=== PATIENT | female | born 1935 | race Caucasian/White ===

== ENCOUNTER → 2016-12-17 | Outpatient (CLI) | payer MEDICARE, BC ==
[2015-08-11 01:33] VITALS: BP 142/80
[~2016-12-17] MED LIST: ACET500T68 PO; ASPI81TA2 PO; CALC-507 PO; FERR-26 PO; GABA-586 PO; LEVO88TA4 PO; LISI-334 PO; MULT-208 PO; VITA1TAB49 PO
--- NOTE | 2016-12-17 14:56 | RAD ---
Left lower extremity venous Doppler ultrasound History: Left lower extremity pain. Comparison: None. Procedure: Color Doppler, spectral Doppler, and grayscale images are obtained with and without compression in the area of the common femoral vein, superficial femoral vein - femoral vein junction, main femoral vein (superficial femoral vein) and popliteal vein. Veins of the proximal calf are also imaged. Findings: There is normal duplex flow, color flow and compressibility of all visualized vein segments. No evidence of deep venous thrombosis is present. Impression: No evidence of left lower extremity deep venous thrombosis.
== END | disposition home or self-care (01) ==
LOC: US 13:21
PROVIDERS: ATTEND Family Medicine
DX: M79.605 Pain in left leg (principal)
CPT/HCPCS: 93971

== ENCOUNTER → 2017-05-27 | Outpatient (CLI) | payer MEDICARE, BC ==
[2015-08-11 01:33] VITALS: BP 142/80
[~2017-05-27] MED LIST changes: +ASPI-630 PO; -ASPI81TA2 PO
--- NOTE | 2017-05-28 10:15 | RAD ---
DATE: 05/27/2017 EXAM: MAMMO MYCHAL SCREEN RT HISTORY: Screening. The history of left breast malignancy with subsequent mastectomy is noted COMPARISON: One year earlier This study was interpreted with the benefit of Computerized Aided Detection (CAD). FINDINGS: Breast Density: FATTY The Breast Parenchyma is primarily fatty replaced. Breast parenchyma level density A.. Some vascular calcification is seen in the breasts. There is no dominant mass or suspect group of calcifications. There has not been a significant change in the appearance of the right breast relative to the previous exam IMPRESSION: Benign findings] right breast BI-RADS CATEGORY: 2 BENIGN FINDING(S) RECOMMENDED FOLLOW-UP: 12M 12 MONTH FOLLOW-UP PQRS compliance statement: Patient information was entered into a reminder system with a target due date 05/27/2018 for the next mammogram. Mammography is a sensitive method for finding small breast cancers, but it does not detect them all and is not a substitute for careful clinical examination. A negative mammogram does not negate a clinically suspicious finding and should not result in delay in biopsying a clinically suspicious abnormality. "Our facility is accredited by the [employer] Mammography Program."
== END | disposition home or self-care (01) ==
LOC: MAMMO 12:47
PROVIDERS: ATTEND Internal Medicine Hematology & Oncology
DX: Z12.31 Encounter for screening mammogram for malignant neoplasm of breast (principal)
CPT/HCPCS: 77063; G0202; 77067

== ENCOUNTER → 2018-06-03 | Outpatient (CLI) | payer MEDICARE, BC ==
[2015-08-11 01:33] VITALS: BP 142/80
[~2018-06-03] MED LIST changes: -FERR-26 PO; +FERR325T14 PO
--- NOTE | 2018-06-03 15:32 | RAD ---
DATE: June 03, 2018 EXAM: MAMMO MYCHAL SCREEN RT HISTORY: History of left breast cancer treated with mastectomy in 2008. COMPARISON: 2015 and 2016 This study was interpreted with the benefit of Computerized Aided Detection (CAD). 2-D digital mammographic views of the right breast were performed in the CC and MLO projections. 3-D digital tomosynthesis images of the right breast were performed in the CC and MLO projections and reviewed on a computer workstation. FINDINGS: Breast Density: FATTY The breast parenchyma is primarily fatty replaced. Breast parenchyma level density A.. There are no dominant suspicious masses, suspicious microcalcifications or evidence of architectural distortion. IMPRESSION: No mammographic indicators for malignancy. BI-RADS CATEGORY: 1 NEGATIVE RECOMMENDED FOLLOW-UP: 12M 12 MONTH FOLLOW-UP PQRS compliance statement: Patient information was entered into a reminder system with a target due date June 04, 2019 for the next mammogram. Mammography is a sensitive method for finding small breast cancers, but it does not detect them all and is not a substitute for careful clinical examination. A negative mammogram does not negate a clinically suspicious finding and should not result in delay in biopsying a clinically suspicious abnormality. "Our facility is accredited by the [employer] Mammography Program." The patient's breast density may affect the ability of mammography to detect breast cancer. There are 4 categories of breast density, A, B, C and D. Breast density A means that most of the breast tissue is replaced with adipose tissue and therefore is not dense. Breast density B means that the breast tissue is mildly dense and scattered. Breast density C means that the breast tissue is heterogeneously dense. Breast density D means that the breast tissue is very dense. Breast densities especially C and D may decrease the sensitivity of mammography to detect breast cancer. Therefore, the patient may benefit from 3-D breast mammography (3D breast tomography) as a part of their screening mammogram. Insurance may or may not pay for this additional imaging. The patient's breast density based on today's mammogram is category A.
== END | disposition home or self-care (01) ==
LOC: MAMMO 11:15
PROVIDERS: ATTEND Family Medicine
DX: Z12.31 Encounter for screening mammogram for malignant neoplasm of breast (principal); I10 Essential (primary) hypertension; Z85.038 Personal history of other malignant neoplasm of large intestine; Z85.3 Personal history of malignant neoplasm of breast; Z90.49 Acquired absence of other specified parts of digestive tract; Z88.0 Allergy status to penicillin; Z88.1 Allergy status to other antibiotic agents
CPT/HCPCS: 77063; 77067

== ENCOUNTER → 2019-06-04 | Outpatient (CLI) | payer MEDICARE, BC ==
[2015-08-11 01:33] VITALS: BP 142/80
--- NOTE | 2019-06-05 13:27 | RAD ---
DATE: 06/04/2019 1:05 PM EXAM: MAMMO MYCHAL SCREEN RT HISTORY: Routine screening evaluation. History of left mastectomy COMPARISON: 05/27/2017, 06/03/2018, 05/24/2016 Bilateral CC and MLO views of the breasts were performed. Bilateral breast tomosynthesis was performed in CC and MLO projections. This study was interpreted with the benefit of Computerized Aided Detection (CAD). FINDINGS: Breast Density: SCATTERED The breast parenchyma shows scattered fibroglandular densities. Breast parenchyma level B Benign calcifications are present. No suspicious masses, microcalcifications or architectural distortion is present to suggest malignancy in either breast. The visualized axillae are unremarkable. IMPRESSION: No mammographic evidence of malignancy. BI-RADS CATEGORY: 2 BENIGN FINDING(S) RECOMMENDED FOLLOW-UP: 12M 12 MONTH FOLLOW-UP Annual screening mammography is recommended, unless clinically indicated sooner based on symptoms or change in physical exam. PQRS compliance statement: Patient information was entered into a reminder system with a target due date for the next mammogram. Mammography is a sensitive method for finding small breast cancers, but it does not detect them all and is not a substitute for careful clinical examination. A negative mammogram does not negate a clinically suspicious finding and should not result in delay in biopsying a clinically suspicious abnormality. "Our facility is accredited by the [employer] Mammography Program."
== END | disposition home or self-care (01) ==
LOC: MAMMO 12:55
PROVIDERS: ATTEND Family Medicine
DX: Z12.31 Encounter for screening mammogram for malignant neoplasm of breast (principal); N64.89 Other specified disorders of breast; Z90.12 Acquired absence of left breast and nipple
CPT/HCPCS: 77063; 77067

== ENCOUNTER → 2020-01-29 | Day surgery (SDC) | payer MEDICARE, BC ==
[~2020-01-29] MED LIST changes: +CALC-178 PO; +IPRATRPIUM/ALBUTEROL 0.5/2.5MG 3 ML NEBU. NEB PRN; +IV RINGERS SOLUTION,LACTATED 1,000 ML IV SCH; +LEVO75TA5 PO; +ONDANSETRON PF 4 MG/2 ML VIAL. IV PRN; +PROPOFOL 10,000 MCG/ML (20ML) VIAL IV ONE; +SERT25TA PO; +VIT1TABL32 PO
[2020-01-29 13:38] VITALS: BP 129/57
--- NOTE | 2020-02-02 15:07 | PATHOLOGY ---
[facility] Accession Number: [id number] . 01 Material submitted: . stomach - ANTRUM-GASTRITIS . 01 Clinical history: . None provided . 02 Diagnosis: Gastric biopsies, antrum: - Chronic gastritis, mild. ([facility] 02/02/2020) [facility] 02/02/2020 0919 Local . 02 Comment: Sections of the gastric biopsy reveal segments of gastric body and antral/body transition mucosa showing congestion and mild chronic inflammation. A properly controlled immunoperoxidase stain for Helicobacter is negative for Helicobacter organisms. ([facility] 02/02/2020) . Special stain performed: Immunoperoxidase for Helicobacter on A1. . 02 Electronically signed: . Ambrosio Collins MD, Pathologist NPI- [id number] . 01 Gross description: . The specimen is received in formalin, labeled "Shelby Friend, antrum gastritis". Received are two segments of pale corrales soft tissue ranging in size from 0.2 to 0.6 cm in maximum dimensions. The specimen is submitted entirely in cassette A1. ([facility]; 02/01/2020) [facility] 02/01/2020 1533 Local . 02 Pathologist provided ICD-10: K29.50 . 02 CPT . 046663, [id number] Specimen Comment: A courtesy copy of this report has been sent to [phone], [phone] Specimen Comment: [id number] Specimen Comment: Report sent to / DR KOENIG Performed at: 01 [facility] [address], [place] [id number] MD Joe Rios MD Phone: [phone] Performed at: 02 [facility] [address] [place], [place] [id number] MD Ambrosio Collins MD Phone: [phone]
== END | disposition home or self-care (01) ==
LOC: SURG 11:01
PROVIDERS: ATTEND Internal Medicine Gastroenterology
DX: R12 Heartburn (principal); Z11.59 Encounter for screening for other viral diseases; K29.50 Unspecified chronic gastritis without bleeding; K44.9 Diaphragmatic hernia without obstruction or gangrene; K22.2 Esophageal obstruction; K21.0 Gastro-esophageal reflux disease with esophagitis; Z88.0 Allergy status to penicillin; Z88.1 Allergy status to other antibiotic agents; Z87.11 Personal history of peptic ulcer disease; Z79.899 Other long term (current) drug therapy
CPT/HCPCS: 43239; 87635; 88305; 88342; J2704

== ENCOUNTER 2020-03-01 20:38 | Emergency (ER) | payer MEDICARE, BC ==
[~2020-03-01] VITALS: Ht 152.4 cm; Wt 59.0 kg
[~2020-03-01 20:38] MED LIST changes: -IPRATRPIUM/ALBUTEROL 0.5/2.5MG 3 ML NEBU. NEB PRN; -IV RINGERS SOLUTION,LACTATED 1,000 ML IV SCH; -ONDANSETRON PF 4 MG/2 ML VIAL. IV PRN; -PROPOFOL 10,000 MCG/ML (20ML) VIAL IV ONE
[2020-03-01] MEDS ORDERED: IV NORMAL SALINE 1,000ML 1,000 ML IV ONE (21:00)
[2020-03-01] MEDS ORDERED: ONDANSETRON PF 4 MG/2 ML VIAL. IVP ONE (21:00)
--- NOTE | 2020-03-01 21:11 | PHYS DOC ---
Past History Past Medical History: Cancer, Hypertension Past Surgical History: Cholecystectomy, Other Past Surgical History sigmoidoscopy, mastectomy, Smoking: Non-smoker Alcohol Use: None Drug Use: None General Adult EDM: Chief Complaint: ABDOMINAL PAIN HPI: HPI: Patient is a 84 year old female who presents with sudden onset right-sided abdominal pain about 5 PM today. She has had nausea but no vomiting. Patient is a complex medical history including colorectal cancer in 2001 and she is status post sigmoid ostomy. Patient had a perforated small bowel in 2014. Patient complains of chronic dark stools because she is on iron. There is no obvious rectal bleeding bright red stools etc. patient was in mild to moderate distress on arrival. Patient is in moderate distress on arrival. Patient is established with Dr. Cintron's group for general surgery at [facility] Review of Systems: Review of Systems: Constitutional: Denies fever or chills Eyes: Denies change in visual acuity HENT: Denies nasal congestion or sore throat Respiratory: Denies cough or shortness of breath Cardiovascular: Denies chest pain or edema GI: has abdominal pain with nausea, no vomiting, bloody stools or diarrhea : Denies dysuria Musculoskeletal: Denies back pain or joint pain Integument: Denies rash Neurologic: Denies headache, focal weakness or sensory changes Endocrine: Denies polyuria or polydipsia Lymphatic: Denies swollen glands Psychiatric: Denies depression or anxiety Heart Score: Risk Factors: Risk Factors: DM, Current or recent (<one month) smoker, HTN, HLP, family history of CAD, obesity. Risk Scores: Score 0 - 3: 2.5% MACE over next 6 weeks - Discharge Home Score 4 - 6: 20.3% MACE over next 6 weeks - Admit for Clinical Observation Score 7 - 10: 72.7% MACE over next 6 weeks - Early Invasive Strategies Current Medications: Current Meds: Current Medications Medications (Trade) Dose Ordered Sig/Sandro Start Time Stop Time Status Last Admin Dose Admin Ondansetron HCl (Zofran) 4 mg 1X ONCE 03/01/20 21:00 03/01/20 21:01 UNV Sodium Chloride 1,000 ml @ 150 mls/hr 1X ONCE 03/01/20 21:00 03/02/20 03:39 UNV Allergies: Allergies: Allergies Coded Allergies Type Severity Reaction Last Updated Verified Penicillins Allergy Intermediate rash, swelling lips 01/29/20 Yes cephalexin Allergy Intermediate rash and swelling lips 01/29/20 Yes Physical Exam: PE: Constitutional: Well developed, well nourished, moderate distress. [] HENT: Normocephalic, atraumatic, bilateral external ears normal, oropharynx moist, no oral exudates, nose normal. [] Eyes: PERRL, EOMI, conjunctiva normal, no discharge. [] Neck: Normal range of motion, no tenderness, supple, no stridor. [] Cardiovascular:Heart rate regular rhythm, no murmur [] Lungs & Thorax: Bilateral breath sounds clear to auscultation [] Abdomen: Bowel sounds diminished, mild distended, no masses, no pulsatile masses. Tender right side abdomen to palpation [] Skin: Warm, dry, no erythema, no rash. [] Back: No tenderness, no CVA tenderness. [] Extremities: No tenderness, no cyanosis, ROM intact, no edema. [] Neurologic: Alert and oriented X 3, normal motor function, normal sensory function, no focal deficits noted. [] Psychologic: Affect normal, judgement normal, mood normal. [] Current Patient Data: Labs: Laboratory Tests Test 03/01/20 20:45 03/01/20 20:55 Urine Collection Type Unknown Urine Color Yellow Urine Clarity Clear Urine pH 5.0 Urine Specific Ada 1.020 Urine Protein Trace Urine Glucose (UA) Neg mg/dL Urine Ketones (Stick) Neg mg/dL Urine Blood Neg Urine Nitrite Neg Urine Bilirubin Neg Urine Urobilinogen Dipstick 0.2 mg/dL Urine Leukocyte Esterase Neg Urine RBC 0 /HPF Urine WBC 1-4 /HPF Urine Squamous Epithelial Cells Few /LPF Urine Bacteria 0 /HPF Urine Hyaline Casts Occ /HPF Urine Mucus Slight /LPF White Blood Count 8.5 x10^3/uL Red Blood Count 4.44 x10^6/uL Hemoglobin 12.1 g/dL Hematocrit 38.0 % Mean Corpuscular Volume 86 fL Mean Corpuscular Hemoglobin 27 pg Mean Corpuscular Hemoglobin Concent 32 g/dL Red Cell Distribution Width 14.9 % Platelet Count 377 x10^3/uL Neutrophils (%) (Auto) 82 % Lymphocytes (%) (Auto) 10 % Monocytes (%) (Auto) 8 % Eosinophils (%) (Auto) 0 % Basophils (%) (Auto) 0 % Neutrophils # (Auto) 7.0 x10^3uL Lymphocytes # (Auto) 0.8 x10^3/uL Monocytes # (Auto) 0.7 x10^3/uL Eosinophils # (Auto) 0.0 x10^3/uL Basophils # (Auto) 0.0 x10^3/uL Sodium Level 139 mmol/L Potassium Level 3.6 mmol/L Chloride Level 100 mmol/L Carbon Dioxide Level 30 mmol/L Anion Gap 9 Blood Urea Nitrogen 38 mg/dL Creatinine 0.9 mg/dL Estimated GFR (Cockcroft-Gault) 59.9 BUN/Creatinine Ratio 42 Glucose Level 146 mg/dL Calcium Level 10.1 mg/dL Total Bilirubin 0.3 mg/dL Aspartate Amino Transf (AST/SGOT) 18 U/L Alanine Aminotransferase (ALT/SGPT) 28 U/L Alkaline Phosphatase 111 U/L Troponin I Quantitative < 0.017 ng/mL Total Protein 8.3 g/dL Albumin 3.6 g/dL Albumin/Globulin Ratio 0.8 Lipase 696 U/L Current Medications Medications (Trade) Dose Ordered Sig/Sandro Route PRN Reason Start Time Stop Time Status Last Admin Dose Admin Sodium Chloride 1,000 ml @ 150 mls/hr 1X ONCE IV 03/01/20 21:00 03/02/20 03:39 03/01/20 21:38 Ondansetron HCl (Zofran) 4 mg 1X ONCE IVP 03/01/20 21:00 03/01/20 21:07 DC 03/01/20 21:38 Iohexol (Omnipaque 300 Mg/ml) 75 ml 1X ONCE IV 03/01/20 22:00 03/01/20 22:02 DC 03/01/20 22:10 EKG: EKG: Normal sinus rhythm, rate 87, unremarkable EKG, not STEMI read at 8:10 PM [] Radiology/Procedures: Radiology/Procedures: [[address] [address] IMAGING REPORT Signed PATIENT: RADHA JESSICA ACCOUNT: [id number] : 1935 LOCATION: ER AGE: 84 SEX: F EXAM STATUS: REG ER ORD. PHYSICIAN: ASHWINI PLUNKETT DO REASON: right side abd pain, history of cancer and prior bowel perforatio PROCEDURE: CT ABD PELV W/ IV CONTRST ONLY CT scan abdomen and pelvis with contrast 03/01/2020 HISTORY: Right-sided abdominal pain. TECHNIQUE: After the intravenous administration of 100 cc of Omnipaque 350, contiguous, 5 mm axial sections were obtained through the abdomen and pelvis. One or more of the following individualized dose reduction techniques were utilized for this study: 1. Automated exposure control. 2. Adjustment of the mA and/or kV according to patient size. 3. Use of iterative reconstruction technique. FINDINGS: Comparison study is dated 08/11/2015. Images through the lung bases demonstrate mild cardiomegaly. Minimal dependent subsegmental atelectasis is seen bilaterally. The liver, spleen, pancreas, right adrenal gland and right kidney are within normal limits. A 5 mm rounded low-attenuation lesion is seen involving the midpole the left kidney which likely represents a cyst. No further imaging workup is recommended. A 1.7 cm low-attenuation lesion is seen involving the left adrenal gland consistent with an adrenal adenoma. Atherosclerotic calcification of the abdominal aorta is seen. The abdominal aorta tapers normally. Surgical clips are seen within the gallbladder fossa consistent with cholecystectomy. No free fluid or free air is seen within the abdomen. A colostomy is seen within the left lower quadrant of the abdomen. A parastomal hernia is seen which measures 8.4 cm in size. This contains fat and nondilated colon. Dilated air and fluid-filled jejunal and ileal loops are seen throughout the abdomen. A transition point is seen within the pelvis the region of the distal ileum. These findings are consistent with a small bowel obstruction. Images through the pelvis demonstrate the urinary bladder distended with urine. Calcifications are seen within the pelvis consistent with phleboliths. A small amount of free fluid is seen. Mild S-shaped curvature of the thoracolumbar spine is seen. Degenerative changes are seen involving the lower thoracic and throughout the lumbar spine along with both hips. IMPRESSION: Findings are seen consistent with a small bowel obstruction obstruction as discussed above. Electronically signed by: Yvon Nair MD (03/01/2020 10:51 PM) [id number] DICTATED AND SIGNED BY: YVON NAIR MD DATE: 03/01/20 2255 CC: DAVID KOENIG MD; ASHWINI PLUNKETT DO ~ ] Course & Med Decision Making: Course & Med Decision Making Pertinent Labs and Imaging studies reviewed. (See chart for details) [] Dragon Disclaimer: Dragon Disclaimer: This electronic medical record was generated, in whole or in part, using a voice recognition dictation system. 2308: CT scan abdomen pelvis results known and patient has a small bowel suction. Will place a nasogastric tube. Dr. Cintron is patient's general surgeon at [facility]. Call placed now to discuss case and possible transfer to that facility. Patient's pain is under control at this time. Dr. Thakur called right back and accepted patient. He requested I call the facility and the patient be admitted to the hospital service 2323 Dr. Caal is the accepting hospitalist to [facility]. They will get a general surgical consult with Dr. Thakur Departure Departure: Impression: Primary Impression: Small bowel obstruction Additional Impression: Pancreatitis, acute Qualified Codes: K85.90 - Acute pancreatitis without necrosis or infection, unspecified Disposition: 05 TRANSFER OTHER Condition: STABLE Referrals: DAVID KOENIG MD (PCP) Justification of Admission: Justification of Admission: Justification of Admission Dx: Yes ASHWINI PLUNKETT DO Mar 01, 2020 21:11
[2020-03-01 21:18] LABS: BASO % 0 % (0-3); EOS % 0 % (0-3); HEMOGLOBIN 12.1 g/dL (12.0-15.5); LYMPH # 0.8 x10^3/uL (1.0-4.8); LYMPH % 10 % (24-48); MEAN CORPUSCULAR HEMOGLOBIN 27 pg (25-35); MEAN CORPUSCULAR HGB CONC 32 g/dL (31-37); MEAN CORPUSCULAR VOLUME 86 fL (79-100); MONO # 0.7 x10^3/uL (0.0-1.1); MONO % 8 % (0-9); NEUT % 82 % (31-73); PLATELET COUNT 377 x10^3/uL (140-400); RED BLOOD COUNT 4.44 x10^6/uL (3.50-5.40); RED CELL DISTRIBUTION WIDTH 14.9 % (11.5-14.5); WHITE BLOOD COUNT 8.5 x10^3/uL (4.0-11.0)
[2020-03-01 21:34] LABS: CALCIUM 10.1 mg/dL (8.5-10.1); CREATININE 0.9 mg/dL (0.6-1.0); GFR 59.9; POTASSIUM 3.6 mmol/L (3.5-5.1)
[2020-03-01 21:36] LABS: BACTERIA,URINE 0 /HPF (0-FEW); BILIRUBIN,URINE NEG (NEG); CLARITY,URINE CLEAR; COLOR,URINE YELLOW; GLUCOSE,URINE NEG (NEG); NITRITE,URINE NEG (NEG); RBC,URINE 0 /HPF (0-2); SQUAMOUS EPITHELIAL CELL,UR FEW /LPF; UROBILINOGEN,URINE 0.2 mg/dL (0.2 mg/dL)
[2020-03-01 21:37] LABS: HYALINE CASTS, URINE OCC /HPF
[2020-03-01 21:40] LABS: ALBUMIN 3.6 g/dL (3.4-5.0); ALBUMIN/GLOBULIN RATIO 0.8 (1.0-1.7); TOTAL BILIRUBIN 0.3 mg/dL (0.2-1.0); TOTAL PROTEIN 8.3 g/dL (6.4-8.2)
[2020-03-01] MEDS ORDERED: IOHEXOL 300 MG/ML 75 ML VIAL. IV ONE (22:00)
--- NOTE | 2020-03-01 22:53 | RAD ---
CT scan abdomen and pelvis with contrast 03/01/2020 HISTORY: Right-sided abdominal pain. TECHNIQUE: After the intravenous administration of 100 cc of Omnipaque 350, contiguous, 5 mm axial sections were obtained through the abdomen and pelvis. One or more of the following individualized dose reduction techniques were utilized for this study: 1. Automated exposure control. 2. Adjustment of the mA and/or kV according to patient size. 3. Use of iterative reconstruction technique. FINDINGS: Comparison study is dated 08/11/2015. Images through the lung bases demonstrate mild cardiomegaly. Minimal dependent subsegmental atelectasis is seen bilaterally. The liver, spleen, pancreas, right adrenal gland and right kidney are within normal limits. A 5 mm rounded low-attenuation lesion is seen involving the midpole the left kidney which likely represents a cyst. No further imaging workup is recommended. A 1.7 cm low-attenuation lesion is seen involving the left adrenal gland consistent with an adrenal adenoma. Atherosclerotic calcification of the abdominal aorta is seen. The abdominal aorta tapers normally. Surgical clips are seen within the gallbladder fossa consistent with cholecystectomy. No free fluid or free air is seen within the abdomen. A colostomy is seen within the left lower quadrant of the abdomen. A parastomal hernia is seen which measures 8.4 cm in size. This contains fat and nondilated colon. Dilated air and fluid-filled jejunal and ileal loops are seen throughout the abdomen. A transition point is seen within the pelvis the region of the distal ileum. These findings are consistent with a small bowel obstruction. Images through the pelvis demonstrate the urinary bladder distended with urine. Calcifications are seen within the pelvis consistent with phleboliths. A small amount of free fluid is seen. Mild S-shaped curvature of the thoracolumbar spine is seen. Degenerative changes are seen involving the lower thoracic and throughout the lumbar spine along with both hips. IMPRESSION: Findings are seen consistent with a small bowel obstruction obstruction as discussed above. Electronically signed by: Yvon Nair MD (03/01/2020 10:51 PM) [id number]
--- NOTE | 2020-03-01 23:06 | EKG ---
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
[2020-03-02 01:15] VITALS: BP 158/73
--- NOTE | 2020-03-02 02:42 | RAD ---
EXAM: CHEST ONE VIEW. HISTORY: Line placement. COMPARISON: 08/11/2015. FINDINGS: A frontal view of the chest is obtained. A nasogastric tube is looped within the distal stomach and has its tip in the gastric body. Cholecystectomy clips are noted. There is mild basilar atelectasis. There are no confluent infiltrates. There is no pneumothorax or pleural effusion. The heart is not enlarged. There are atherosclerotic calcifications of the aorta. IMPRESSION: 1. No confluent infiltrates. Electronically signed by: Clarita Henderson MD (03/02/2020 2:39 AM) [facility]
== END 2020-03-02 01:15 | disposition short-term general hospital (02) ==
LOC: ER 20:38
DX: K56.609 Unspecified intestinal obstruction, unspecified as to partial versus complete obstruction (principal); K85.90 Acute pancreatitis without necrosis or infection, unspecified; I10 Essential (primary) hypertension; Z90.49 Acquired absence of other specified parts of digestive tract; Z88.0 Allergy status to penicillin; Z88.1 Allergy status to other antibiotic agents
CPT/HCPCS: 36415; 71045; 74177; 80053; 81001; 83690; 84484; 85025; 93005; 96374; 99285; J2405; J7030; Q9967

== ENCOUNTER → 2020-06-14 | Outpatient (CLI) | payer MEDICARE, BC ==
--- NOTE | 2020-06-14 11:26 | RAD ---
EXAM: DUAL ENERGY X-RAY ABSORPTIOMETRY (DEXA). HISTORY: Postmenopausal screening. FINDINGS: The lowest measured T-score is -1.7 in the right hip, based on a bone mineral density of 0.751 g/cm^2. Refer to the worksheets for full detail. There has been a 0.5 percent decrease in density of the right hip and 2.3 percent increase in density of the lumbar spine compared to a baseline study dated 11/06/2011. IMPRESSION: Low bone mass. Bone mineral density yields a T-score between -1.0 and -2.5. Fracture risk is increased. METHODOLOGY: Dual energy x-ray absorptiometry was performed to measure bone mineral density. The following analysis is based on the 2019 Official Positions of the International Society for Clinical Densitometry: Measurements of the hips and the average of L1-L4 are preferred. When the spine and/or hip cannot be feasibly measured or interpreted, or in the setting of hyperparathyroidism, distal radial bone mineral density may be measured. The lumbar spine T-score is based on the average bone mineral density of L1-L4. In the setting of artifact or anatomic abnormality, some lumbar levels may be excluded, and the remaining levels used for calculation. A single lumbar level is not used for diagnosis, and if only a single level is available for assessment, another anatomic site will be used to assign a diagnosis. The hip T-score is based on the bone mineral density measurement of the femoral neck or total proximal femur of either side, whichever is lowest. Bilateral mean values are not used for diagnosis. The forearm T-score is derived from 33% of the distal radius of the nondominant forearm. Electronically signed by: Thea Blanton MD (06/14/2020 11:23 AM) [email or web address]
--- NOTE | 2020-06-15 09:42 | RAD ---
RIGHT UNILATERAL SCREENING MAMMOGRAM History: Routine screening. Left mastectomy. Comparison: 06/04/2014 right mammographic exam and subsequent exams. Technique: Routine right unilateral digital mammogram views were obtained. Findings: Breast Tissue Density B : There are scattered areas of fibroglandular density. There are no dominant masses, suspicious microcalcifications, or architectural distortion. IMPRESSION: No mammographic evidence of malignancy. Recommend routine screening. BI-RADS category 1: Negative. The images were reviewed with computer aided detection. Patient information is entered into the reminder system with a target due date for the next screening mammogram. Mammography is the most sensitive method for finding small breast cancers, but it does not detect them all and is not a substitute for careful clinical examination. A negative mammogram does not negate a clinically suspicious finding and should not result in delay in biopsying a clinically suspicious abnormality. "Our facility is accredited by the [employer] Mammography Program." Electronically signed by: Gavino Ashby MD (06/15/2020 9:39 AM) [id number]
== END | disposition home or self-care (01) ==
LOC: MAMMO 09:09
PROVIDERS: ATTEND Physician Assistant
DX: Z12.31 Encounter for screening mammogram for malignant neoplasm of breast (principal); M81.0 Age-related osteoporosis without current pathological fracture
CPT/HCPCS: 77067; 77080

== ENCOUNTER → 2020-06-24 | Outpatient (CLI) | payer MEDICARE, BC ==
--- NOTE | 2020-06-24 14:33 | RAD ---
HIP RIGHT 2V WITH PELVIS History: Reason: RIGHT PELVIC PAIN / Spl. Instructions: / History: Technique: AP view the pelvis and 2 additional views of the right hip. Comparison: None. Findings: No dislocation. Advanced right hip degenerative changes with severe superior joint space narrowing subchondral cystic changes and sclerosis. No fracture. Lower lumbar spondylosis. Vascular calcination indications. Impression: 1. Advanced right hip DJD. Electronically signed by: Jeferson Kahn DO (06/24/2020 2:30 PM) [id number]
--- NOTE | 2020-06-24 14:44 | RAD ---
KNEE BILAT 3V History: Reason: RIGHT KNEE PAIN / Spl. Instructions: / History: Technique: 3 views bilateral knees. Comparison: None. Findings: Right knee: Normal alignment. No fracture. Mild right knee degenerative changes. Vascular calcifications. Minimal right knee joint effusion. Left knee: Normal alignment. No fracture. Mild left knee degenerative changes. Small left knee joint effusion. Vascular calcifications. Impression: 1. Mild bilateral knee DJD. 2. Small left knee joint effusion. Electronically signed by: Jeferson Kahn DO (06/24/2020 2:41 PM) [id number]
== END ==
LOC: DXRAD 12:55
PROVIDERS: ATTEND Family Medicine
DX: M17.0 Bilateral primary osteoarthritis of knee (principal); M16.11 Unilateral primary osteoarthritis, right hip; M47.816 Spondylosis without myelopathy or radiculopathy, lumbar region; M25.462 Effusion, left knee
CPT/HCPCS: 73502; 73562

== ENCOUNTER → 2020-10-24 | Outpatient (CLI) | payer MEDICARE, BC ==
[~2020-10-24] MED LIST changes: -LISI-334 PO; +LISI20TA18 PO
--- NOTE | 2020-10-24 16:03 | RAD ---
EXAM: Pelvis and right hip, 3 views. HISTORY: Pain. COMPARISON: None. FINDINGS: A frontal view the pelvis and 2 views of the right hip are obtained. There is a right hip a rthroplasty in expected position. There is lumbar scoliosis and degenerative change primarily at the lower lumbar levels. There are surgical clips overlying the right upper quadrant and pelvis. IMPRESSION: Right hip arthroplasty in expected position. Electronically signed by: Thea Blanton MD (10/24/2020 4:00 PM) [id number]
== END ==
LOC: RAD 14:11
PROVIDERS: ATTEND Physician Assistant
DX: M47.816 Spondylosis without myelopathy or radiculopathy, lumbar region (principal); M41.86 Other forms of scoliosis, lumbar region; Z96.641 Presence of right artificial hip joint
CPT/HCPCS: 73502

== ENCOUNTER 2021-04-03 19:51 | Emergency (ER) | payer MEDICARE, BC ==
[~2021-04-03] VITALS: Ht 152.4 cm; Wt 53.6 kg
--- NOTE | 2021-04-03 19:57 | PHYS DOC ---
Past History Past Medical History: Cancer, Hypertension, Hypothyroid, Other Additional Past Medical Histor: breast ca, colorectal ca,fracture rt wrist,perforated bowel Past Surgical History: Cholecystectomy, Other Additional Past Surgical Histo: sigmoidostomy/surgery,lft mastectomy,c ataracts/lens implants,abd surgery Smoking: Non-smoker Alcohol Use: None Drug Use: None General Adult EDM: Chief Complaint: CHEST PAIN HPI: HPI: "...I ve been just exhausted since Saturday... It tisha come on my all of a sudden..or . Maybe too much birthday on Saturday..".." But I ve been having this chest discomfort and shortness of breath.. but I did not want to miss my Birthday constitution party..you don't get.many more at my age....." Patient is a 86 year old female who presents with above Hx. and complaints of chest discomfort and shortness of breath. Patient states symptoms of fatigue and dizziness started Saturday, and persisted through the weekend and her birthday constitution party. Has had some episodes of sweating without fever. The patient denies any recent travel. No specific ill contacts. Patient denies any fever or chills. Patient has significant past medical history of breast cancer and left mastectomy, colon resection 2001, and perforated small bowel 2014. patient also underwent chemotherapy and radiation treatment. Patient also has history of, hypertension, chronic anemia, rheumatic fever, cardiac murmur, spinal clyde nosis, depression, Parkinson's and pancreatitis. . Patient has had both Covid vaccinations of Moderna in Oct/November.. Patient normally follows with Dr. Boyce.. Her Surgeons are Dr. Cintron. 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 Review of Systems: Review of Systems: Constitutional: Denies fever or chills Eyes: Denies change in visual acuity HENT: Denies nasal congestion or sore throat Respiratory: Complains of shortness of breath Cardiovascular: Complains of chest discomfort . GI: Denies abdominal pain, nausea, vomiting, bloody stools or diarrhea : Denies dysuria Musculoskeletal: Denies back pain or joint pain. Complains of generalized fatigue and weakness Integument: Denies rash Neurologic: Denies headache, focal weakness or sensory changes Endocrine: Denies polyuria or polydipsia Lymphatic: Denies swollen glands Psychiatric: Denies depression or anxiety Family History: Family History: Noncontributory to presentation Current Medications: Current Meds: See nursing for home meds Allergies: Allergies: Allergies Coded Allergies Type Severity Reaction Last Updated Verified Penicillins Allergy Intermediate rash, swelling lips 01/29/20 Yes cephalexin Allergy Intermediate rash and swelling lips 01/29/20 Yes Physical Exam: PE: Constitutional: Moderate acute distress, non-toxic appearance. [] HENT: Normocephalic, atraumatic, bilateral external ears normal, oropharynx moist, no oral exudates, nose normal. [] Eyes: PERRLA, EOMI, conjunctiva normal, no discharge. Glasses Neck: Normal range of motion, no tenderness, supple, no stridor. [] Cardiovascular: Tachycardia heart rate regular rhythm, systolic murmur []. PMI to the left Lungs & Thorax: Bilateral breath sounds equal apex with scattered crackles throughout on auscultation [] left mastectomy scar Abdomen: Bowel sounds normal, soft, no tenderness, no masses, no pulsatile masses. Old surgery scar. Colostomy left Skin: Warm, dry, no erythema, no rash. Poor turgor Back: No tenderness, no CVA tenderness. Kyphosis and scoliosis Extremities: No tenderness, no cyanosis, no clubbing, ROM intact, ankle edema. No cording appreciated. Arthritic changes. Neurologic: Alert and oriented X 3, moves all extremities on request, does have distal sensory, no focal deficits noted. [] Psychologic: Affect anxious, judgement normal, mood normal. [] EKG: EKG: My interpretation EKG shows a sinus rhythm at 93 bpm. There is an anterior lateral injury pattern inferior infarction. There is depression in the ST segments in leads II and I.. Abnormal EKG suspect MD [] EKG #1 2011 hrs. My interpretation EKG #2 shows a sinus rhythm at 89 bpm. Findings consistent with inferior myocardial infarction. Depressed ST segments in I and II. time EKG is 2052 hrs. Morphology similar to EKG 1 Radiology/Procedures: Radiology/Procedures: [][address] [address] IMAGING REPORT Signed PATIENT: RADHA JESSICA ACCOUNT: [id number] : 1935 LOCATION: ER AGE: 86 SEX: F EXAM STATUS: REG ER ORD. PHYSICIAN: LYNN MATAMOROS MD REASON: cp PROCEDURE: PORTABLE CHEST 1V AP chest. HISTORY: Chest pain AP view was taken of the chest. Heart is normal in size. There is no definite effusion. There is mild interstitial prominence in the lung bases from slight i nterstitial infiltrates or edema. IMPRESSION: 1. Mild interstitial infiltrates or edema in the lung bases. 2. No confluent infiltrates. Electronically signed by: Omar Morse MD (04/03/2021 8:28 PM) [facility] DICTATED AND SIGNED BY: OMAR MORSE MD DATE: 04/03/212026 CC: DAVID BOYCE MD; LYNN MATAMOROS MD ~MTH0 0 Heart Score: C/O Chest Pain: Yes HEART Score for Chest Pain: HEART Score for Chest Pain Response (Comments) Value ECG Significant ST Depression 2 Age > 65 2 Risk Factors 1 or 2 Risk Factors 1 Troponin >3 x Normal Limit 2 Total 7 Risk Factors: Risk Factors: DM, Current or recent (<one month) smoker, HTN, HLP, family history of CAD, obesity. Risk Scores: Score 0 - 3: 2.5% MACE over next 6 weeks - Discharge Home Score 4 - 6: 20.3% MACE over next 6 weeks - Admit for Clinical Observation Score 7 - 10: 72.7% MACE over next 6 weeks - Early Invasive Strategies Course & Med Decision Making: Course & Med Decision Making Pertinent Labs and Imaging studies reviewed. (See chart for details) Discussed presentation, testing and treatment plan with Dr. Simpson and Dr. Ashton. Plan transfer to [facility]. Suspect patient had MD on Saturday or Saturday by history. With progression of CHF and inferior MD . Discussed findings with daughter Angi Ba- [phone]. Mother's states daughter can speak for her if she is unable to speak for herself. Critical care-60 min. Impression: 1. Myocardial infarction-anterior lateral's inferior subendocardial injury Trop=5.117 2. CHF/diastolic dysfunction- BNP 11,794 3. History of colon cancer 4. History of breast cancer 5. Anemia hemoglobin 10 [] Raon Disclaimer: Dragej Disclaimer: This electronic medical record was generated, in whole or in part, using a voice recognition dictation system. Departure Departure: Referrals: DAVID BOYCE MD (PCP) Gregorio Disclaimer This chart was dictated in whole or in part using Voice Recognition software in a busy, high-work load, and often noisy Emergency Department environment. It may contain unintended and wholly unrecognized errors or omissions. Dragon Disclaimer This chart was dictated in whole or in part using Voice Recognition software in a busy, high-work load, and often noisy Emergency Department environment. It may contain unintended and wholly unrecognized errors or omissions. Dragon Disclaimer This chart was dictated in whole or in part using Voice Recognition software in a busy, high-work load, and often noisy Emergency Department environment. It may contain unintended and wholly unrecognized errors or omissions. LYNN MATAMOROS MD Apr 03, 2021 19:57
[2021-04-03] MEDS ORDERED: IV RINGERS SOLUTION,LACTATED 1,000 ML IV SCH (20:00)
--- NOTE | 2021-04-03 20:26 | EKG ---
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
--- NOTE | 2021-04-03 20:31 | RAD ---
AP chest. HISTORY: Chest pain AP view was taken of the chest. Heart is normal in size. There is no definite effusion. There is mild interstitial prominence in the lung bases from slight interstitial infiltrates or edema. IMPRESSION: 1. Mild interstitial infiltrates or edema in the lung bases. 2. No confluent infiltrates. Electronically signed by: Omar Morse MD (04/03/2021 8:28 PM) [facility]
[2021-04-03 20:36] LABS: BARBITURATES NEG (NEG); BENZODIAZEPINES NEG (NEG); CANNABINOIDS NEG (NEG); COCAINE NEG (NEG); METHADONE NEG (NEG); OPIATES NEG (NEG); PHENCYCLIDINE NEG (NEG)
[2021-04-03 20:40] LABS: AMPHETAMINE/METHAMPHETAMINE NEG (NEG)
[2021-04-03 21:13] LABS: BILIRUBIN,URINE NEG (NEG); CLARITY,URINE CLEAR; COLOR,URINE YELLOW; GLUCOSE,URINE NEG (NEG); NITRITE,URINE NEG (NEG); UROBILINOGEN,URINE 0.2 mg/dL (0.2 mg/dL)
[2021-04-03 21:15] LABS: BACTERIA,URINE FEW /HPF (0-FEW); HYALINE CASTS, URINE FEW /HPF; RBC,URINE OCC /HPF (0-2); SQUAMOUS EPITHELIAL CELL,UR OCC /LPF
[2021-04-03 21:17] LABS: AMORPHOUS SEDIMENT,UR PRESENT /HPF
--- NOTE | 2021-04-03 21:25 | EKG ---
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
[2021-04-03 21:26] LABS: CALCIUM 8.7 mg/dL (8.5-10.1); CREATININE 0.9 mg/dL (0.6-1.0); GFR 59.7; POTASSIUM 4.5 mmol/L (3.5-5.1)
[2021-04-03 21:28] LABS: BASO % 0 % (0-3); EOS # 0.1 x10^3/uL (0.0-0.7); EOS % 1 % (0-3); HEMATOCRIT 31.7 % (36.0-47.0); LYMPH # 1.1 x10^3/uL (1.0-4.8); LYMPH % 12 % (24-48); MEAN CORPUSCULAR HEMOGLOBIN 25 pg (25-35); MEAN CORPUSCULAR HGB CONC 32 g/dL (31-37); MEAN CORPUSCULAR VOLUME 79 fL (79-100); MONO # 0.7 x10^3/uL (0.0-1.1); MONO % 8 % (0-9); NEUT # 7.5 x10^3uL (1.8-7.7); NEUT % 80 % (31-73); PLATELET COUNT 310 x10^3/uL (140-400); RED CELL DISTRIBUTION WIDTH 18.5 % (11.5-14.5); WHITE BLOOD COUNT 9.4 x10^3/uL (4.0-11.0)
[2021-04-03 21:40] LABS: ALBUMIN 3.1 g/dL (3.4-5.0); DIRECT BILIRUBIN 0.1 mg/dL (0.0-0.2); TOTAL BILIRUBIN 0.2 mg/dL (0.2-1.0); TOTAL PROTEIN 6.8 g/dL (6.4-8.2)
[2021-04-03] MEDS ORDERED: ASPIRIN 325 MG TABLET PO ONE (22:00)
[2021-04-03] MEDS ORDERED: ENOXAPARIN ** NOTE DOSE ** SYRINGE SQ ONE (22:30)
[2021-04-03] MEDS ORDERED: FUROSEMIDE 40 MG/4 ML VIAL IVP ONE (22:30)
[2021-04-04 00:15] VITALS: BP 100/62
== END 2021-04-04 00:25 | disposition short-term general hospital (02) ==
LOC: ER 19:51
DX: I21.9 Acute myocardial infarction, unspecified (principal); I11.0 Hypertensive heart disease with heart failure; I50.30 Unspecified diastolic (congestive) heart failure; D64.9 Anemia, unspecified; E03.9 Hypothyroidism, unspecified; Z85.030 Personal history of malignant carcinoid tumor of large intestine; Z85.3 Personal history of malignant neoplasm of breast; Z88.0 Allergy status to penicillin; Z88.1 Allergy status to other antibiotic agents
CPT/HCPCS: 36415; 71045; 80048; 80076; 80307; 81001; 82150; 82550; 83690; 83735; 83880; 84443; 84484; 85025; 85379; 85610; 85730; 93005; 96361; 96372; 96374; 99291; J1650; J1940; J7120

== ENCOUNTER → 2021-07-14 | Outpatient (CLI) | payer MEDICARE, BC ==
--- NOTE | 2021-07-17 17:25 | RAD ---
DATE: 07/14/2021 EXAM: MG DIGITAL UNILAT DIAGNOSTIC MAMMO WITH MYCHAL HISTORY: Left breast cancer post mastectomy in 2008. COMPARISON: Multiple exams including 06/14/2020, 06/04/2010, 06/03/2018, 05/27/2017 This study was interpreted with the benefit of Computerized Aided Detection (CAD). Breast Density: SCATTERED The breast parenchyma shows scattered fibroglandular densities. Breast pare nchyma level B. FINDINGS: No suspicious mass, calcifications or architectural distortion. IMPRESSION: No evidence of malignancy. BI-RADS CATEGORY: 1 NEGATIVE RECOMMENDED FOLLOW-UP: 12M 12 MONTH FOLLOW-UP PQRS compliance statement: Patient information was entered into a reminder system with a target due d ate for the next mammogram. Mammography is a sensitive method for finding small breast cancers, but it does not detect them all a nd is not a substitute for careful clinical examination. A negative mammogram does not negate a clin ically suspicious finding and should not result in delay in biopsying a clinically suspicious abnorma lity. "Our facility is accredited by the [employer] Mammography Program." Electronically signed by: Liliane Elena MD (07/17/2021 5:22 PM) [email or web address]
== END ==
LOC: MAMMO 14:00
PROVIDERS: ATTEND Family Medicine
DX: R92.2 Inconclusive mammogram (principal)
CPT/HCPCS: 77065; G0279; 77061

== ENCOUNTER → 2021-10-31 | Outpatient (CLI) | payer MEDICARE, BC ==
--- NOTE | 2021-10-31 20:28 | CARD ---
MR#: [id number] Date of Study: 10/31/2021 Ordering Physician: MARY JO PHILLIPS, Referring Physician: MARY JO PHILLIPS, Tech: Maryellen Burnett, [facility] APPROVED REPORT EXAM: Two-dimensional and M-mode echocardiogram with Doppler and color Doppler. Other Information Quality : AverageHR: 68bpm INDICATION Atrial Fibrillation RISK FACTORS Hypertension 2D DIMENSIONS Left Atrium(2D)3.7 (1.6-4.0cm)IVSd0.8 (0.7-1.1cm) Aortic Root(2D)2.6 (2.0-3.7cm)LVDd5.5 (3.9-5.9cm) LVOT Diameter1.9 (1.8-2.4cm)PWd1.0 (0.7-1.1cm) LVDs3.0 (2.5-4.0cm)FS (%) 45.6 % SV111.8 mlLVEF(%)76.4 (>50%) Aortic Valve AoV Peak Matthieu.255.8cm/sAoV VTI67.5cm AO Peak GR.26.2mmHgLVOT Peak Matthieu.152.9cm/s LVOT VTI 40.72cmAO Mean GR.16mmHg ADDISON (VMAX)1.33ej0WJY (VTI)1.73cm2 Mitral Valve MV E Vjjrqkto91.5cm/sMV E Peak Gr.6mmHg MV DECEL [id number] A Bffecgou977.3cm/s MV E Mean Gr.3mmHgE/A Ratio0.8 Pulmonary Valve PV Peak Fbtbwnws41.2cm/sPV Peak Grad.3mmHg Tricuspid Valve TR P. Gwffyyoc618ny/sRAP [id number] TR Peak Gr.72ilVsQCWK77hfHe LEFT VENTRICLE The left ventricle is normal size. There is normal left ventricular wall thickness. The left ventricu lar systolic function is normal and the ejection fraction is within normal range. The Ejection Fracti on is 50-55%. There is normal LV segmental wall motion. Transmitral Doppler flow pattern is Grade I-a bnormal relaxation pattern. RIGHT VENTRICLE The right ventricle is normal size. There is normal right ventricular wall thickness. The right ventr icular systolic function is normal. ATRIA The left atrium size is normal. The right atrium size is normal. The interatrial septum is intact wit h no evidence for an atrial septal defect or patent foramen ovale as noted on 2-D or Doppler imaging. AORTIC VALVE The aortic valve is calcified and displays decreased opening. Doppler and Color Flow revealed trace a ortic regurgitation. There is moderate stenosis visually but mild by doppler criteria. Calculated aor tic valve area is 1.8 cm2 with maximum pressure gradient of 26 mmHg and mean pressure gradient of 16 mmHg. MITRAL VALVE The mitral valve is normal in structure and function. There is no evidence of mitral valve prolapse. There is no mitral valve stenosis with a mean gradient of 2.67 mmHg. Doppler and Color-flow revealed mild mitral regurgitation. TRICUSPID VALVE The tricuspid valve is normal in structure and function. Doppler and Color Flow revealed trace tricus pid regurgitation with an estimated PAP of 36 mmHg. There is no tricuspid valve stenosis. PULMONIC VALVE The pulmonic valve is not well visualized. Doppler and Color Flow revealed trace pulmonic valvular re gurgitation. There is no pulmonic valvular stenosis. GREAT VESSELS The aortic root is normal in size. The ascending aorta is normal in size. The IVC is normal in size a nd collapses >50% with inspiration. PERICARDIAL EFFUSION There is no evidence of significant pericardial effusion. Critical Notification Critical Value: No <Conclusion> The left ventricular systolic function is normal and the ejection fraction is within normal range. Th e Ejection Fraction is 50-55%. There is normal LV segmental wall motion. There is moderate aortic valve stenosis visually but mild by doppler criteria. Calculated aortic abel ve area is 1.8 cm2 with maximum pressure gradient of 26 mmHg and mean pressure gradient of 16 mmHg. Signed by : Mary Jo Phillips, Electronically Approved : 10/31/2021 20:27:53
== END ==
LOC: ECHO 13:11
PROVIDERS: ATTEND Internal Medicine Cardiovascular Disease
DX: I08.0 Rheumatic disorders of both mitral and aortic valves (principal); I48.91 Unspecified atrial fibrillation
CPT/HCPCS: 93306

== ENCOUNTER → 2021-11-24 | Outpatient (CLI) | payer MEDICARE, BC ==
[~2021-11-24] MED LIST changes: +IOHEXOL 240 MG/ML 50ML VIAL. PO ONE; +IOHEXOL 300 MG/ML 75 ML VIAL. IV ONE
--- NOTE | 2021-11-24 16:35 | RAD ---
PQRS Compliance Statement: One or more of the following individualized dose reduction techniques were utilized for this examinat ion: 1. Automated exposure control 2. Adjustment of the mA and/or kV according to patient size 3. Use of iterative reconstruction technique CT ABDOMEN+PELVIS W Clinical Indication: Reason: hernia / Spl. Instructions: / History: Comparison: CT abdomen and pelvis with contrast March 01, 2020. Technique: Helical CT imaging of the abdomen and pelvis is performed without IV contrast. Oral contra st is administered. Findings: There is atelectasis or scarring in the bilateral lung bases. Cardiac size upper limits of normal. Cholecystectomy. The liver, spleen, pancreas, and abdominal aorta caliber are normal. Right adrenal g land hyperplasia is unchanged. Small left adrenal adenoma is unchanged. There is no hydronephrosis. The stomach is unremarkable. Oral contrast opacifies multiple small bowel loops. Several small bowel loops are mildly dilated but no definite obstruction is seen. There is moderate colon stool volume. N o colon wall thickening is seen. There is left lower quadrant ostomy. A parastomal hernia containing fat and a short segment of the co kaden is similar to the prior study measuring 4.3 x 9 cm. Atrophic uterus. Urinary bladder is decompressed. No pelvic free fluid is seen. There is right hip arthroplasty. There is mild right convexity lumbar scoliosis. There is diffuse dem ineralization. There is grade 1 anterolisthesis of L4 on L5. There is grade 1/2 anterolisthesis of L5 on S1. No spondylolysis is seen. There is mild grade 1 retrolisthesis of L2 on L3 and L1 on L2. IMPRESSION: 1. 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 2. Oral contrast opacifies multiple small bowel loops. Several small bowel loops are mildly dilated. There is no point of transition to suggest obstruction. Ileus or partial small bowel obstruction are considerations. Electronically signed by: Manohar Ernandez MD (11/24/2021 4:33 PM) [id number]
== END ==
LOC: CT 12:37
PROVIDERS: ATTEND Family Medicine
DX: K43.5 Parastomal hernia without obstruction or gangrene (principal); D35.02 Benign neoplasm of left adrenal gland; E27.8 Other specified disorders of adrenal gland; N85.8 Other specified noninflammatory disorders of uterus; M41.86 Other forms of scoliosis, lumbar region; M43.17 Spondylolisthesis, lumbosacral region; Z96.641 Presence of right artificial hip joint; Z90.49 Acquired absence of other specified parts of digestive tract
CPT/HCPCS: 74176